=== PATIENT | male | born 1980 | race African-American/Black ===

== ENCOUNTER 2018-07-02 09:22 | Emergency (ER) | payer SELFPAY ==
[~2018-07-02] VITALS: Ht 175.3 cm; Wt 66.2 kg
[2018-07-02] MEDS ORDERED: LEVE250T2 PO (09:29)
[2018-07-02] MEDS ORDERED: DIVA500T2 PO (09:29)
[2018-07-02] MEDS ORDERED: LORAZEPAM INJ 2 MG/ML VIAL IVP ONE (09:30)
[2018-07-02] MEDS ORDERED: IV NS 0.9% 500 ML BAG IV ONE (09:30)
--- NOTE | 2018-07-02 09:30 | NUR ---
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 Patient denies dringking and drugs. On room air, breathing evenly and unlabored. Denies any pain at this time. Connected to the montor and pulse ox. kept comfortable. will continue to monitor accordingly.
[2018-07-02] MEDS ORDERED: LORAZEPAM INJ 2 MG/ML VIAL ONE (09:31)
[2018-07-02 09:35] LABS: BASOPHILS % (AUTO) 0.6 % (0.0-2.0); EOSINOPHILS % (AUTO) 0.2 % (0.0-6.0); HEMATOCRIT 41 % (39-51); HEMOGLOBIN 13.2 g/dL (13.5-17.5); LYMPHOCYTES # (AUTO) 1.5 /CMM (0.8-4.8); LYMPHOCYTES % (AUTO) 35.4 % (20.0-44.0); MEAN CORPUSCULAR HGB CONC 32 g/dl (31.0-36.0); MEAN CORPUSCULAR VOLUME 81 fL (80-96); MONOCYTES # (AUTO) 0.4 /CMM (0.1-1.30); NEUTROPHILS # (AUTO) 2.3 /CMM (1.8-8.9); NEUTROPHILS % (AUTO) 54.8 % (43.0-81.0); PLATELET COUNT (AUTO) 143 /CMM (150-450); RED BLOOD CELL COUNT(AUTO) 5.09 MIL/uL (4.5-6.0); WHITE BLOOD COUNT (AUTO) 4.2 K/uL (4.3-11.0)
[2018-07-02 09:42] LABS: CALCIUM, SERUM 8.6 mg/dL (8.5-10.1); POTASSIUM 3.1 mmol/L (3.5-5.1)
[2018-07-02 09:48] LABS: ALBUMIN 3.5 g/dL (3.4-5.0); BILIRUBIN,DIRECT 0.1 mg/dL (0.0-0.2); BILIRUBIN,TOTAL 0.4 mg/dL (0.2-1.0); TOTAL PROTEIN, SERUM 7.2 g/dL (6.4-8.2)
--- NOTE | 2018-07-02 09:49 | NUR ---
urine collected and sent to lab.
[2018-07-02 11:30] VITALS: BP 135/81
--- NOTE | 2018-07-02 11:31 | NUR ---
Patient discharged to home in stable condition. Written and verbal after care instructions given. Patient verbalizes understanding of instruction.IV removed. Catheter intact and site benign. Pressure and 4x4 applied to site. No bleeding noted.
== END 2018-07-02 11:30 | disposition home or self-care (01) ==
LOC: ER 09:24
DX: F10.239 Alcohol dependence with withdrawal, unspecified (principal); F17.200 Nicotine dependence, unspecified, uncomplicated; Z79.899 Other long term (current) drug therapy; Y90.5 Blood alcohol level of 100-119 mg/100 ml
CPT/HCPCS: 36415; 80048-TC; 80076-TC; 80305; 85025-TC; G0480; J2060; J7040